=== PATIENT | male | born 1995 | race African-American/Black ===

== ENCOUNTER 2018-03-18 00:01 | Emergency (ER) | payer BC ==
[~2018-03-18] VITALS: Ht 182.9 cm; Wt 207.8 kg
--- NOTE | ~2018-03-18 | EKG ---
[place] [address] [facility] [place] [address] ELECTROCARDIOGRAM REPORT Name: LIN,SHAANNABELLE Room #: DEP SARAH Moy#: [id number] Admission: 03/18/18 Attend Phys: Discharge: 03/18/18 Date of : [birth year] Report #: [id number] THIS REPORT FOR: //name// [facility] ED Test Date: 2018-03-18 Test Time: 00:56:53 Pat Name: EMERALD CEBALLOS Department: Room: Gender: Hospital Clinic Assistant: juli : 1995 Requested By: Herbert Cates Order Number: [id number] MD: Pantera Hdez Measurements Intervals [place] Rate: 86 P: 21 HI: 157 QRS: 40 QRSD: 101 T: 2 QT: 354 QTc: 424 Interpretive Statements Sinus rhythm Borderline T wave abnormalities No previous ECG available for comparison Electronically Signed On 03-18-2018 8:45:35 CDT by Pantera Hdez [email or web address] <ELECTRONICALLY SIGNED> By: Pantera Hdez MD, [facility] 03/18/18 0845 0056 0056 Pantera Hdez MD, FACC /EPI
[2018-03-18 00:11] VITALS: BP 174/95
[2018-03-18] MEDS ORDERED: ROBITUSSIN100 MG/53 PO (01:09)
[2018-03-18] MEDS ORDERED: ZPAK PO (01:09)
[2018-03-18] MEDS ORDERED: IBUPROFEN 600600 M1 PO (01:14)
== END 2018-03-18 01:23 | disposition home or self-care (01) ==
LOC: ER 00:01
DX: R05 Cough (principal); R07.89 Other chest pain; R06.02 Shortness of breath; E66.01 Morbid (severe) obesity due to excess calories

== ENCOUNTER 2019-10-17 18:20 | Emergency (ER) | payer BC ==
[~2019-10-17] VITALS: Ht 182.9 cm; Wt 220.0 kg
[~2019-10-17 18:20] MED LIST: IBUPROFEN 600600 M1 PO; ROBITUSSIN100 MG/53 PO; ZPAK PO
[2019-10-17 18:31] VITALS: BP 204/130
[2019-10-17] MEDS ORDERED: DOXYCYCLINE 10100 MG PO (20:52)
[2019-10-17] MEDS ORDERED: TAMIFLU75 MG PO (20:52)
[2019-10-17] MEDS ORDERED: TESSALON PERLE100 MG PO (20:52)
[2019-10-18] MEDS ORDERED: MEDROLDOSEPACK PO (21:03)
[2019-10-18] MEDS ORDERED: ULTRAM 50MG TAB50 MG PO (21:34)
== END 2019-10-17 21:19 | disposition home or self-care (01) ==
LOC: ER 18:20
DX: J11.00 Influenza due to unidentified influenza virus with unspecified type of pneumonia (principal); E66.01 Morbid (severe) obesity due to excess calories; Z68.44 Body mass index [BMI] 60.0-69.9, adult

== ENCOUNTER 2019-10-18 18:53 | Emergency (ER) | payer BC ==
[~2019-10-18] VITALS: Ht 182.9 cm; Wt 222.3 kg
[~2019-10-18 18:53] MED LIST changes: +DOXYCYCLINE 10100 MG PO; +TAMIFLU75 MG PO; +TESSALON PERLE100 MG PO
[2019-10-18] MEDS ORDERED: MEDROLDOSEPACK PO (21:03)
[2019-10-18] MEDS ORDERED: ULTRAM 50MG TAB50 MG PO (21:34)
[2019-10-18 22:08] VITALS: BP 195/106
== END 2019-10-18 22:18 | disposition home or self-care (01) ==
LOC: ER 18:53
DX: J03.90 Acute tonsillitis, unspecified (principal); J18.9 Pneumonia, unspecified organism; E66.09 Other obesity due to excess calories